=== PATIENT | female | born 1970 | race Caucasian/White ===

== ENCOUNTER 2017-09-17 12:35 | Emergency (ER) | payer MEDICAID ==
[~2017-09-17] VITALS: Ht 160 cm; Wt 74.2 kg
[2017-09-17 12:54] VITALS: BP 114/80
--- NOTE | 2017-09-17 15:35 | NUR ---
Pt presents to ED c/o burning with urination, vaginal itching, and white vaginal discharge. Pt states having unprotected sex x5 days ago and wishes to be seen by ERMD. VSS. Positioned in bed for comfort. Continue to monitor.
--- NOTE | 2017-09-17 16:02 | NUR ---
PT AMBULATED WITH LIMP TO BED 10
[2017-09-17] MEDS ORDERED: FLUCONAZOLE 100 MG TAB PO ONE (16:50)
[2017-09-17] MEDS ORDERED: FLUCONAZOLE 100 MG TAB ONE (17:53)
[2017-09-17] MEDS ORDERED: cefTRIAXone 1,000 MG in LIDOCAINE 1% ***ER ONLY *** 2.1 ML IM ONE (18:10)
[2017-09-17] MEDS ORDERED: cefTRIAXone 1,000 MG VIAL ONE (18:15)
[2017-09-17] MEDS ORDERED: LIDOCAINE 2% 1000 MG/50 ML VIAL INJ ONE (18:16)
[2017-09-17 18:18] VITALS: BP 114/80
--- NOTE | 2017-09-17 18:18 | NUR ---
Patient discharged with v/s stable. Written and verbal after care instructions given and explained. Patient alert, oriented and verbalized understanding of instructions. Ambulatory with steady gait. All questions addressed prior to discharge. ID band removed. Patient advised to follow up with PMD. Rx of Hydroxyzine hydrochloride and Gyne-Lotrimin given. Patient educated on indication of medication including possible reaction and side effects. Opportunity to ask questions provided and answered.
--- NOTE | 2017-09-17 18:18 | NUR ---
Note undone in EDM - 09/17/17 at 1836 by MEDANA Pt presents to ED c/o palpitations x1 day. Pt felt as he had previously when he had SVT in the past. Pt HR 166. A&Ox4. Pt states no pain, n/v, or chest pain. ERMD aware. Continue to montitor.
== END 2017-09-17 18:18 | disposition home or self-care (01) ==
LOC: MED 12:35
DX: N76.0 Acute vaginitis (principal)
CPT/HCPCS: 87070; 87205; 87210; 96372; 99284; J0696; J2001; 81002; 81025

== ENCOUNTER 2018-09-11 20:54 | Emergency (ER) | payer MEDICAID ==
[~2018-09-11] VITALS: Ht 157.5 cm; Wt 75.4 kg
[2018-09-11 21:13] VITALS: BP 118/59
--- NOTE | 2018-09-11 21:15 | NUR ---
PT RETURNED TO LOBBY IN STABLE CONDITION
--- NOTE | 2018-09-11 22:05 | NUR ---
PT AMBULATED TO ED BED 01.
--- NOTE | 2018-09-11 22:05 | NUR ---
PT C/O BURNING WITH URINATION AND VAGINAL DISCHARGE. 8/10 BURNING PAIN. X5 DAYS. VSS. AFEBRILE. NO LOWER BACK PAIN. ER MD AWARE. CONTINUE TO MONITOR.
[2018-09-11 23:37] VITALS: BP 112/61
--- NOTE | 2018-09-11 23:37 | NUR ---
Patient discharged with v/s stable. Written and verbal after care instructions given and explained. Patient alert, oriented and verbalized understanding of instructions. Ambulatory with steady gait. All questions addressed prior to discharge. ID band removed. Patient advised to follow up with PMD. Rx of Senokot, Diflucan, Motrin, and Bactrim given. Patient educated on indication of medication including possible reaction and side effects. Opportunity to ask questions provided and answered.
== END 2018-09-11 23:37 | disposition home or self-care (01) ==
LOC: MED 20:54
DX: N39.0 Urinary tract infection, site not specified (principal); K59.00 Constipation, unspecified
CPT/HCPCS: 81002; 81025; 99283